=== PATIENT | female | born 1930 | race Caucasian/White ===

== ENCOUNTER 2017-08-04 15:49 | Emergency (ER) | payer MEDICARE ==
[~2017-08-04] VITALS: Ht 160 cm; Wt 53.1 kg
[~2017-08-04 15:49] MED LIST: ASPI325T8 PO; BRIM5DRO2 OU; LISI-334 PO; MECL-51 PO; MULT-18 PO; PRESSURE VISION
--- NOTE | 2017-08-04 17:05 | PHYS DOC ---
Past History Past Medical History: No Pertinent History, Glaucoma, Hypertension, Other Past Surgical History: No Surgical History Smoking: Non-smoker Alcohol Use: None Drug Use: None Adult General Chief Complaint Chief Complaint: neck pain HPI HPI 87-year-old female presenting to the emergency department today with neck pain. Triage complaint reports the patient states dizziness or lightheadedness. The patient does states that she feels mildly dizzy by this she means that when she stands up she feels mildly lightheaded. She however states that her primary complaint is the pain that started in her neck a few hours ago. She describes pain in the left trapezius muscle. She reports that it was cramped for about 10- 20 minutes and currently is improving. She reports having normal range of motion of the neck. She denies fevers chills cough chest pain shortness of breath. The pain in her neck was moderate nonradiating intermittent. She denies any recent trauma. Review of systems is negative for fevers chills petechiae abdominal pain. All other review of systems is negative unless otherwise noted in history of present illness. ED course: 87-year-old female presenting to the emergency department today with neck pain. Upon arrival the patient is afebrile with normal range of motion of the neck. Neurologic exam unremarkable. CT head and neck angiogram along with CT head head and neck without contrast. Patient was given oral Lortab for her neck pain. Patient was signed out to Dr. Gifford at 6 PM with plans to follow- up on imaging and reevaluation of the patient. Review of Systems Review of Systems SEE ABOVE. Allergies Allergies Allergies Coded Allergies Type Severity Reaction Last Updated Verified No Known Drug Allergies 09/11/13 No Physical Exam Physical Exam SEE ABOVE Constitutional: Well developed, well nourished, no acute distress, non-toxic appearance. [] HENT: Normocephalic, atraumatic, bilateral external ears normal, oropharynx moist, no oral exudates, nose normal. Pupils are approximately 3 mm to 4 mm in size equal round and reactive. Eyes: PERRLA, EOMI, conjunctiva normal, no discharge. [] Neck: Normal range of motion, mild tenderness along the left trapezius muscle. No stridor. Cardiovascular:Heart rate regular rhythm, no murmur [] Lungs & Thorax: Bilateral breath sounds clear to auscultation [] Abdomen: Bowel sounds normal, soft, no tenderness, no masses, no pulsatile masses. [] Skin: Warm, dry, no erythema, no rash. [] Back: No tenderness, no CVA tenderness. [] Extremities: No tenderness, no cyanosis, no clubbing, ROM intact, no edema. [] Neurologic: Mental status: Awake oriented and alert x3 Cranial nerves: Extraocular movements intact, eyebrows darrel bilaterally smile symmetric, uvula elevation, shoulder shrug intact, tongue protrusion normal DTRs: 2+ Sensation: equal and normal in all extremities Strength: 5/5 in upper and lower extremities bilaterally Psychologic: Affect normal, judgement normal, mood normal. [] Current Patient Data Vital Signs Vital Signs Date Time Temp Pulse Resp B/P (MAP) Pulse Ox O2 Delivery O2 Flow Rate FiO2 08/04/17 15:49 98.3 68 18 97 Room Air EKG EKG [] Radiology/Procedures Radiology/Procedures [] Course & Med Decision Making Course & Med Decision Making Pertinent Labs and Imaging studies reviewed. (See chart for details) See Dr. Reddy notes for details. Pt. is without symptoms and currently insistent on discharge. Pt. exhibit UCAR capacity- aware of risks of discharge. Pt. CT Head and Cervical= no acute changes. See formal report. Impression: 1. Dizzy 2. Neck Pain 3. Spinal Stenosis Pt. to follow up with primary. Return if any concerns. [] Dragon Disclaimer Dragon Disclaimer This electronic medical record was generated, in whole or in part, using a voice recognition dictation system. Departure Departure: Referrals: PCP,NO (PCP) LÓPEZ REDDY MD Aug 04, 2017 17:05 TARYN GIFFORD MD Aug 04, 2017 19:06
[2017-08-04] MEDS ORDERED: HYDROcodone/APAP 5/325MG 1 TAB TABLET PO ONE (17:15)
[2017-08-04] MEDS ORDERED: IV NORMAL SALINE 500ML 500 ML IV ONE (17:15)
[2017-08-04 17:20] LABS: HEMOGLOBIN ISTAT 12.6 gm/dL; POTASSIUM ISTAT 3.8 mmol/L (3.5-5.0)
[2017-08-04 17:26] LABS: BASO % 1 % (0-3); EOS # 0.4 x10^3/uL (0.0-0.7); EOS % 6 % (0-3); HEMATOCRIT 39.5 % (36.0-47.0); HEMOGLOBIN 13.3 g/dL (12.0-15.5); LYMPH # 1.6 x10^3/uL (1.0-4.8); LYMPH % 26 % (24-48); MEAN CORPUSCULAR HEMOGLOBIN 31 pg (25-35); MEAN CORPUSCULAR HGB CONC 34 g/dL (31-37); MEAN CORPUSCULAR VOLUME 90 fL (79-100); MONO # 0.5 x10^3/uL (0.0-1.1); MONO % 8 % (0-9); NEUT # 3.7 x10^3uL (1.8-7.7); NEUT % 60 % (31-73); PLATELET COUNT 158 x10^3/uL (140-400); RED BLOOD COUNT 4.37 x10^6/uL (3.50-5.40); RED CELL DISTRIBUTION WIDTH 15.3 % (11.5-14.5); WHITE BLOOD COUNT 6.2 x10^3/uL (4.0-11.0)
[2017-08-04] MEDS ORDERED: IOHEXOL 300 MG/ML 75 ML VIAL. IV ONE (17:30)
--- NOTE | 2017-08-04 18:44 | RAD ---
CT scan of the head without contrast 08/04/2017 Clinical History: Head trauma. Dizziness. Technique: Unenhanced, contiguous, 5 mm axial sections were obtained through the head. One or more of the following individualized dose reduction techniques were utilized for this study: 1. Automated exposure control. 2. Adjustment of the mA and/or kV according to patient size. 3. Use of iterative reconstruction technique. Findings: Comparison study is dated 10/01/2013. There is generalized parenchymal atrophy. Areas of decreased attenuation are seen within the periventricular and subcortical white matter of both cerebral hemispheres consistent with areas of small vessel ischemic disease. No acute parenchymal abnormality is seen. No extra-axial fluid collection is noted. No skull fracture is seen. Impression: No acute intracranial abnormality is seen. CT scan of the cervical spine without contrast 08/04/2017 Clinical history: Neck pain. Technique: Unenhanced, contiguous, 0.625 mm axial sections were obtained through the cervical spine. Axial, coronal and sagittal reconstructed images were obtained. One or more of the following individualized dose reduction techniques were utilized for this study: 1. Automated exposure control. 2. Adjustment of the mA and/or kV according to patient size. 3. Use of iterative reconstruction technique. Findings: Comparison study is dated 10/01/2013. Sagittal and coronal reconstructed images demonstrate minimal lateral curvature of the cervical spine convex to the right. There is slight reversal of normal cervical lordosis. Mild anterolisthesis of C5 in relation to C6 is noted. Degenerative changes consisting of vertebral endplate sclerosis and minimal to mild anterior and posterior vertebral body osteophyte formation are seen throughout the cervical disc spaces. Disc space narrowing is seen involving the C6-7 and C7-T1 discs. No fracture or subluxation of the cervical vertebrae is seen. Degenerative changes are seen involving the uncovertebral and facet joints throughout the cervical disc spaces. No area of significant central spinal canal stenosis is seen. Mild left neural foraminal stenosis is seen at C3-4. These findings have not significantly changed. Impression: Degenerative changes are seen involving the cervical spine as outlined above. No acute osseous abnormality is seen. Electronically signed by: Manjit Garcia MD (08/04/2017 6:41 PM) [facility]
--- NOTE | 2017-08-04 18:52 | RAD ---
CTA of the head and neck with contrast 08/04/2017 Clinical history: Sharp pain at base of neck with dizziness. Technique: After the intravenous administration 75 cc of Omnipaque 300, contiguous, 0.625 mm axial sections were obtained through the upper chest, neck and head. Multiplanar 3-D MIP and volume rendered 3-D reconstructed images were obtained. One or more of the following individualized dose reduction techniques were utilized for this study: 1. Automated exposure control. 2. Adjustment of the mA and/or kV according to patient size. 3. Use of iterative reconstruction technique. Findings: Comparison is made to patient's CT scan of the head performed earlier today. Mild atherosclerotic plaque formation is seen involving the thoracic aortic arch. The origins of the brachiocephalic, left common carotid and left subclavian arteries are patent. The origins of the right common carotid and both vertebral arteries are patent. The common carotid arteries are tortuous but patent. Mild atheromatous/atherosclerotic plaque formation is seen involving both carotid bifurcations. No hemodynamically significant stenosis or area of occlusion is seen. The internal carotid arteries within the neck are tortuous but patent. The vertebral arteries are codominant. Both vertebral arteries demonstrate normal antegrade flow. Intracranially the petrous, cavernous and supraclinoid portions of both internal carotid arteries are within normal limits. The basilar artery is patent. The anterior, middle and posterior cerebral arteries and their branches are within normal limits. No areas stenosis or occlusion is seen. No area of abnormal contrast enhancement is seen. The major dural venous sinuses are patent. No acute soft tissue abnormality is seen involving the neck. Degenerative changes are seen involving the uncovertebral and facet joints throughout the cervical disc spaces. IMPRESSION: 1. Mild atheromatous/atherosclerotic plaque formation is seen involving both carotid bifurcations. No hemodynamically significant stenosis or area of occlusion is seen. 2. No intracranial stenosis or area of occlusion is seen. Stenosis calculation for CTA are based on measurement of the distal internal carotid artery diameter in accordance with the NASCET methodology. Electronically signed by: Manjit Garcia MD (08/04/2017 6:49 PM) [facility]
[2017-08-04 19:20] VITALS: BP 148/89
[2017-08-04] MEDS ORDERED: ASPIRIN 325 MG TABLET PO ONE (19:30)
== END 2017-08-04 19:25 | disposition home or self-care (01) ==
LOC: ER 15:49
DX: M48.02 Spinal stenosis, cervical region (principal); R42 Dizziness and giddiness
CPT/HCPCS: 36415; 70450; 70496; 70498; 72125; 80047; 85025; 96360; 99285; J7040; Q9967

== ENCOUNTER 2017-08-20 14:06 | Inpatient (IN) | payer MEDICARE ==
[~2017-08-20] VITALS: Ht 152.4 cm; Wt 50.8 kg
[2017-08-20] MEDS ORDERED: IV NORMAL SALINE 100ML 100 ML ONE (15:36)
[2017-08-20] MEDS ORDERED: IOHEXOL 300 MG/ML 75 ML VIAL. IV ONE (15:45)
[2017-08-20 15:53] LABS: BASO % 1 % (0-3); EOS # 0.2 x10^3/uL (0.0-0.7); EOS % 5 % (0-3); HEMATOCRIT 41.3 % (36.0-47.0); HEMOGLOBIN 13.8 g/dL (12.0-15.5); LYMPH # 1.2 x10^3/uL (1.0-4.8); LYMPH % 24 % (24-48); MEAN CORPUSCULAR HEMOGLOBIN 30 pg (25-35); MEAN CORPUSCULAR HGB CONC 33 g/dL (31-37); MEAN CORPUSCULAR VOLUME 91 fL (79-100); MONO # 0.6 x10^3/uL (0.0-1.1); MONO % 13 % (0-9); NEUT # 2.9 x10^3uL (1.8-7.7); NEUT % 58 % (31-73); PLATELET COUNT 122 x10^3/uL (140-400); RED BLOOD COUNT 4.54 x10^6/uL (3.50-5.40); RED CELL DISTRIBUTION WIDTH 15.6 % (11.5-14.5)
[2017-08-20 15:56] LABS: CALCIUM 8.6 mg/dL (8.5-10.1); CREATININE 0.7 mg/dL (0.6-1.0); GFR 79.3; POTASSIUM 3.8 mmol/L (3.5-5.1)
--- NOTE | 2017-08-20 16:47 | RAD ---
One or more of the following individualized dose reduction techniques were utilized for this examination: 1. Automated exposure control 2. Adjustment of the mA and/or kV according to patient size 3. Use of iterative reconstruction technique CT orbits with contrast. History: Cellulitis left eye left cheek redness and swelling Study CT scan of the orbits was done using 75 mL Omnipaque 370 contrast. Sinuses are clear throughout. Visualized intracranial structures are unremarkable. Ventricles are normal in size. There is mild superficial soft tissue swelling on the left. There is no intraorbital mass. Parotid glands are unremarkable. There is no mass identified in the pharynx. Submandibular glands are normal although incompletely evaluated inferiorly. Sagittal and coronal reconstructed images were obtained. There is no abscess identified. A facial fracture is not identified. Ostiomeatal complex is clear. Impression: 1. No abscess noted. 2. Sinuses are clear. 3. Facial bones are unremarkable.
--- NOTE | 2017-08-20 17:54 | PHYS DOC ---
Past History Past Medical History: No Pertinent History, Glaucoma, Hypertension, Other Past Surgical History: No Surgical History Smoking: Non-smoker Alcohol Use: None Drug Use: None Adult General Chief Complaint Chief Complaint: EYE PROBLEMS HPI HPI Patient is a 87 year old female who presents with rash on her face that started 2-3 days ago around her right eye and has since spread to the left side of her face. Her rash is predominantly over the right eye and this caused some visual disturbance as well as pressure/pain in the eye. She does have baseline poor vision but she feels that her vision is worse. She denies fever sweats or chills. She denies headache. She denies any other associated symptoms. She denies any exacerbating or relieving factors. Review of Systems Review of Systems Constitutional: Denies fever or chills [] Eyes: Denies change in visual acuity, redness, or eye pain [] HENT: Denies nasal congestion or sore throat [] Respiratory: Denies cough or shortness of breath [] Cardiovascular: No additional information not addressed in HPI [] GI: Denies abdominal pain, nausea, vomiting, bloody stools or diarrhea [] : Denies dysuria or hematuria [] Musculoskeletal: Denies back pain or joint pain [] Integument: Negative except history of present illness Neurologic: Denies headache, focal weakness or sensory changes [] Endocrine: Denies polyuria or polydipsia [] All other systems were reviewed and found to be within normal limits, except as documented in this note. Family History Family History No pertinent family medical history reported Current Medications Current Medications Current medications reviewed Current Medications Medications (Trade) Dose Ordered Sig/John Start Time Stop Time Status Last Admin Dose Admin Ceftriaxone Sodium 2 gm/ Sodium Chloride 100 ml @ 200 mls/hr 1X ONCE 08/20/17 16:00 08/20/17 16:30 DC 08/20/17 15:41 200 MLS/HR Ceftriaxone Sodium (Rocephin) 2 gm STK-MED ONCE 08/20/17 15:36 08/20/17 15:37 DC Iohexol (Omnipaque 300 Mg/ml) 75 ml 1X ONCE 08/20/17 15:45 08/20/17 15:46 DC Sodium Chloride 100 ml @ As Directed STK-MED ONCE 08/20/17 15:36 08/20/17 15:37 DC Allergies Allergies Allergies Coded Allergies Type Severity Reaction Last Updated Verified No Known Drug Allergies 09/11/13 No Physical Exam Physical Exam Constitutional: Well developed, well nourished, no acute distress, non-toxic appearance. [] HENT: Normocephalic, atraumatic, moderate erythema completely surrounding the right eye and extending to the inferior margin of the left eye. Well defined margins. Patient describes small bulla that is since opened Eyes: PERRLA, EOMI, film noted over the right eye Neck: Normal range of motion, no tenderness, supple, no stridor. [] Cardiovascular:Heart rate regular rhythm, no murmur [] Lungs & Thorax: Bilateral breath sounds clear to auscultation [] Abdomen: Bowel sounds normal, soft, no tenderness, no masses, no pulsatile masses. [] Skin: Warm, dry, no erythema, Back: No tenderness, no CVA tenderness. [] Extremities: No tenderness, no cyanosis, no clubbing, ROM intact, no edema. [] Neurologic: Alert and oriented X 3, normal motor function, normal sensory function, no focal deficits noted. [] Psychologic: Affect normal, judgement normal, mood normal. [] Current Patient Data Vital Signs Vital Signs Date Time Temp Pulse Resp B/P (MAP) Pulse Ox O2 Delivery O2 Flow Rate FiO2 08/20/17 14:06 97.8 87 18 99 Room Air Lab Results Laboratory Tests Test 08/20/17 15:27 White Blood Count 5.0 x10^3/uL (4.0-11.0) Red Blood Count 4.54 x10^6/uL (3.50-5.40) Hemoglobin 13.8 g/dL (12.0-15.5) Hematocrit 41.3 % (36.0-47.0) Mean Corpuscular Volume 91 fL (79-100) Mean Corpuscular Hemoglobin 30 pg (25-35) Mean Corpuscular Hemoglobin Concent 33 g/dL (31-37) Red Cell Distribution Width 15.6 % (11.5-14.5) H Platelet Count 122 x10^3/uL (140-400) L Neutrophils (%) (Auto) 58 % (31-73) Lymphocytes (%) (Auto) 24 % (24-48) Monocytes (%) (Auto) 13 % (0-9) H Eosinophils (%) (Auto) 5 % (0-3) H Basophils (%) (Auto) 1 % (0-3) Neutrophils # (Auto) 2.9 x10^3uL (1.8-7.7) Lymphocytes # (Auto) 1.2 x10^3/uL (1.0-4.8) Monocytes # (Auto) 0.6 x10^3/uL (0.0-1.1) Eosinophils # (Auto) 0.2 x10^3/uL (0.0-0.7) Basophils # (Auto) 0.0 x10^3/uL (0.0-0.2) Sodium Level 144 mmol/L (136-145) Potassium Level 3.8 mmol/L (3.5-5.1) Chloride Level 107 mmol/L (98-107) Carbon Dioxide Level 29 mmol/L (21-32) Anion Gap 8 (6-14) Blood Urea Nitrogen 18 mg/dL (7-20) Creatinine 0.7 mg/dL (0.6-1.0) Estimated GFR (Cockcroft-Gault) 79.3 Glucose Level 105 mg/dL (70-99) H Calcium Level 8.6 mg/dL (8.5-10.1) EKG EKG [] Radiology/Procedures Radiology/Procedures CT orbit with contrast Impressions: Please refer to radiology report for further details. No abscess noted Course & Med Decision Making Course & Med Decision Making Pertinent Labs and Imaging studies reviewed. (See chart for details) She was started on Rocephin 2 g IV. Her condition remained stable in the emergency room. Dragon Disclaimer Dragon Disclaimer This electronic medical record was generated, in whole or in part, using a voice recognition dictation system. Departure Departure: Impression: Primary Impression: Facial cellulitis Disposition: ADMITTED INPATIENT Condition: STABLE Referrals: PCP,NO (PCP) KYLAH LAUREN MD Aug 20, 2017 17:54
[2017-08-20 18:03] LABS: ALBUMIN 3.2 g/dL (3.4-5.0); DIRECT BILIRUBIN 0.1 mg/dL (0.0-0.2); TOTAL BILIRUBIN 0.5 mg/dL (0.2-1.0); TOTAL PROTEIN 6.9 g/dL (6.4-8.2)
[2017-08-20 18:46] VITALS: BP 188/93
[2017-08-20] MEDS ORDERED: ASPIRIN ENTERIC COATED 81 MG TABLET.DR. PO PRN (19:15)
[2017-08-20] MEDS: BRIMONIDINE 0.2% OPHTH SOLUTION 5ML BOTTLE. OU SCH (20:36)
[2017-08-20] MEDS: TIMOLOL 0.5% OPHTH SOLUTION 5ML BOTTLE. OU SCH (20:36)
[2017-08-20 23:00] VITALS: BP 145/73
[2017-08-21 05:16] VITALS: BP 170/84
[2017-08-21] MEDS: BRIMONIDINE 0.2% OPHTH SOLUTION 5ML BOTTLE. OU SCH ×2 (08:08→19:55)
[2017-08-21] MEDS: MULTIVITAMIN with MINERAL TABLET. PO SCH (08:08)
[2017-08-21] MEDS: TIMOLOL 0.5% OPHTH SOLUTION 5ML BOTTLE. OU SCH ×2 (08:08→19:55)
[2017-08-21] MEDS ORDERED: methylPREDNISolone SOD SUCC PF 40 MG/ML VIAL. IV ONE (10:00)
[2017-08-21 10:38] VITALS: BP 133/87
[2017-08-21] MEDS: ACYCLOVIR SODIUM 500 MG in IV DEXTROSE 5% 100 ML IV SCH ×2 (10:49→22:34)
--- NOTE | 2017-08-21 11:16 | HP ---
ADMIT DATE: 08/21/2017 REASON FOR ADMISSION: Left facial cellulitis versus herpes zoster. HISTORY OF PRESENT ILLNESS: This is an 87-year-old female, there may be a connection to a visit she made to the Emergency Room on the 08/04/2017 she had developed some acute neck pain on the left side, had really not been doing anything. It radiated into her ear. She thought that it affected her vision and then she broke out what she thought was looked like poison judie on her face. She was seen in the Emergency Room and diagnosed with neck pain. She noticed that her face was also blood red and pain and with eyes watering, she came to the Emergency Room. PAST MEDICAL HISTORY: She has had a couple bouts of polymyalgia rheumatica. She has osteoarthritis, macular degeneration and glaucoma. 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 MEDICATIONS: One baby aspirin a day. ALLERGIES: None. SOCIAL HISTORY: The patient lives alone [place] She still drives. She does a lot of gardening. Her is and her only child also . Remote smoking history. No alcohol. REVIEW OF SYSTEMS: Negative for chest pain, negative for shortness of breath. Positive for a slight decrease in appetite. Negative bowel or bladder issues. Complaining also of a dry throat and some chills. PHYSICAL EXAMINATION: VITAL SIGNS: Blood pressure is 170/84, pulse 73, respirations 18, pulse ox 97% on room air. HEENT AND NECK: Left TM, there is no erythema, but the cone of light is missing. There is some right debris inside the ear. The external ear is slightly erythematous. Her nose was patent. Throat was clear. There were no lesions in her throat. Tongue was slightly dry. Her neck was supple without adenopathy. Face: The patient has crusted lesions, which appear like herpes zoster along the trigeminal dermatome, also affects eye and the forehead, does not cross the midline. She has some soft tissue swelling on the left. There is a little bit of redness on the right cheek. Now, her pupils were equal, round and reactive to light. Extraocular muscles were intact. The left eye is watery, could not do an adequate ophthalmic exam. She does have, I believe, one herpetic type lesion on her scalp and is tender. LUNGS: Clear to auscultation. CARDIOVASCULAR: Regular rhythm and rate with 1/6 systolic murmur. ABDOMEN: Soft, nontender. EXTREMITIES: Without any edema. SKIN: Overall is aged in appearance. NEUROLOGIC: She is alert and oriented. LABORATORY DATA: CBC: Low normal white count of 5.0 with 13 monocytes, 5 eosinophils and platelet count 122,000. Chemistry: Slightly low albumin of 3.2, otherwise normal. Slightly elevated alkaline phosphatase. Sedimentation rate and C-reactive protein pending. ASSESSMENT: Herpes zoster of the left side of the face, also concern for the eye, history of macular degeneration, history of glaucoma, mild thrombocytopenia, mild eosinophilia. PLAN: We will start her on acyclovir. Consult Dr. Fierro. Low-dose steroid today, ____ has been 18 day since her initial symptom, but will treat her and await Dr. Fierro recommendations. DURAN BUENO DO DR: ADRIANO/arielle JOB#: [id number] / [id number]
--- NOTE | 2017-08-21 14:58 | CONS ---
DATE OF CONSULTATION: 08/21/2017 PHYSICIAN REQUESTING CONSULTATION: Ilene Henry DO TIME: 12:15 p.m. CHIEF COMPLAINT: Rash on the left side of face. HISTORY OF PRESENT ILLNESS: This 87-year-old female states that approximately 6 days ago, she began having pain, irritation, burning on the left side of her face, and around her left eye. She then broke out with a rash on the left side of the face and also had some complaints of pressure in her head, especially on standing. She gets some pain as well in the left ear. DESCRIPTION OF PROCEDURE: The patient presented to the emergency room and was admitted to the hospital with probable shingles, possible cellulitis. She was then started on IV acyclovir. 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 The patient has a history of hypertension as well. MEDICATIONS: Include Combigan twice a day in both eyes for glaucoma. SOCIAL HISTORY: The patient denies alcohol. She was a former smoker. FAMILY HISTORY: Unknown. ALLERGIES: Possible reaction to a seizure medication, but the patient does not know what it was. PHYSICAL EXAMINATION: Physical exam is done at bedside. She is a well-developed, well-nourished female in no acute distress. Externally, she has a vesicular rash with generalized erythema on the left scalp, left periorbital region, and the left cheek. The nose is not involved. There is some evidence of scabbing and scaling. The rash is tender to touch and is warm to the touch. Visual acuity at near with correction is 20/70 in the right and 20/200 in the left. Intraocular pressures are 13 in the right and 14 in the left. The patient is well known to me and review of her medical record reveals her baseline vision in the right eye to be 20/150 and 20/80 in the left due to macular degeneration. Slit lamp examination of the left eye reveals dermatochalasis. There is a vesicular lesion involving the lid margin of the left upper lid. She has arcus and corneal guttata. There is a significant amount of mucus in the eye, but there is no evidence of conjunctivitis. Anterior chambers deep and quiet. Iris is normal. There is an intraocular lens present. IMPRESSION: 1. Herpes zoster dermatitis, left side of the face without ocular involvement at the present time. 2. Primary open angle glaucoma with adequate intraocular pressures. 3. Fuchs dystrophy (corneal endothelial dystrophy). 4. Macular degeneration, both eyes. I agree with present treatment protocol. I did explain to the patient that sometimes we can get some ocular involvement within a week or two after the skin lesions erupt. I recommend seeing her again in a week after her discharge or earlier if she has increased pain, redness, or change in vision. Thank you very much for consulting me on this patient. If I can of any other assistance, please do not hesitate to contact me. RENAN CRANDALL DO DR: MATTEO/arielle JOB#: [id number] / [id number]
[2017-08-21] MEDS: ACYCLOVIR 5% TOPICAL OINT 5GM TUBE. TP SCH (15:06)
[2017-08-21 15:37] VITALS: BP 122/64
[2017-08-21 15:39] VITALS: BP 153/67
[2017-08-21 19:26] VITALS: BP 153/87
[2017-08-21 23:39] VITALS: BP 158/77
[2017-08-22 06:26] VITALS: BP 142/84
[2017-08-22 06:53] LABS: HEMATOCRIT 41.2 % (36.0-47.0); HEMOGLOBIN 14.3 g/dL (12.0-15.5); RED BLOOD COUNT 4.62 x10^6/uL (3.50-5.40); WHITE BLOOD COUNT 6.5 x10^3/uL (4.0-11.0)
[2017-08-22 07:15] LABS: ALBUMIN 3.1 g/dL (3.4-5.0); ALBUMIN/GLOBULIN RATIO 0.8 (1.0-1.7); CALCIUM 8.8 mg/dL (8.5-10.1); CREATININE 0.8 mg/dL (0.6-1.0); MAGNESIUM 2.1 mg/dL (1.8-2.4); POTASSIUM 3.9 mmol/L (3.5-5.1); TOTAL BILIRUBIN 0.5 mg/dL (0.2-1.0); TOTAL PROTEIN 7.1 g/dL (6.4-8.2)
[2017-08-22] MEDS: ACYCLOVIR 5% TOPICAL OINT 5GM TUBE. TP SCH ×2 (08:37→14:28)
[2017-08-22] MEDS: MULTIVITAMIN with MINERAL TABLET. PO SCH (08:37)
[2017-08-22] MEDS: BRIMONIDINE 0.2% OPHTH SOLUTION 5ML BOTTLE. OU SCH ×2 (08:37→20:47)
[2017-08-22] MEDS: TIMOLOL 0.5% OPHTH SOLUTION 5ML BOTTLE. OU SCH ×2 (08:37→20:47)
[2017-08-22 10:06] VITALS: BP 167/77
[2017-08-22] MEDS: ACYCLOVIR SODIUM 500 MG in IV DEXTROSE 5% 100 ML IV SCH ×2 (10:27→20:47)
[2017-08-22] MEDS: LISINOPRIL 5 MG TABLET. PO SCH (11:49)
[2017-08-22 15:25] VITALS: BP 159/78
[2017-08-22 18:57] VITALS: BP 122/71
[2017-08-22 22:33] VITALS: BP 103/65
--- NOTE | 2017-08-23 03:17 | PN ---
DATE: 08/22/2017 CURRENT PROBLEMS: 1. Facial herpes zoster without eye involvement. 2. Macular degeneration. 3. Glaucoma. 4. Mild thrombocytopenia, which has resolved. SUBJECTIVE: The patient was seen in her room. She is doing much better today. Face feels better. The IV acyclovir is really helping her. She has been getting information on herpes zoster. She was quite confused and insist that she has never had the chickenpox. She was seen by Dr. Fierro who did not find any eye involvement. Her distribution is along C2 dermatome. OBJECTIVE: VITAL SIGNS: Blood pressure 167/77, pulse 75, respirations 18, temperature is 97.5, pulse ox is 96% on room air. She has trending some elevated blood pressures. GENERAL: Face crusting and erythema has gotten better. All lesions have crusted over now, distributed on the left side of the face, primarily on the forehead and the area around the eye. Scalp was a little bit tender as well. NECK: Supple. LUNGS: Clear. CARDIOVASCULAR: Regular rhythm and rate. ABDOMEN: Soft, nontender. EXTREMITIES: Without edema. LABORATORY DATA: Unremarkable. PLAN: One more day of acyclovir. Plan for discharge tomorrow and we will possibly start her on low dose blood pressure medication. DURAN BUENO DO DR: ADRIANO/arielle JOB#: [id number] / [id number]
[2017-08-23 05:58] VITALS: BP 120/74
[2017-08-23] MEDS: ACYCLOVIR 5% TOPICAL OINT 5GM TUBE. TP SCH (08:32)
[2017-08-23] MEDS: TIMOLOL 0.5% OPHTH SOLUTION 5ML BOTTLE. OU SCH (08:33)
[2017-08-23] MEDS: BRIMONIDINE 0.2% OPHTH SOLUTION 5ML BOTTLE. OU SCH (08:33)
[2017-08-23] MEDS: MULTIVITAMIN with MINERAL TABLET. PO SCH (08:33)
[2017-08-23] MEDS: LISINOPRIL 5 MG TABLET. PO SCH (08:34)
[2017-08-23] MEDS: ACYCLOVIR SODIUM 500 MG in IV DEXTROSE 5% 100 ML IV SCH (08:35)
[2017-08-23] MEDS ORDERED: ACYC800T PO (10:15)
[2017-08-23] MEDS ORDERED: LISI-338 PO (10:15)
[2017-08-23 10:17] VITALS: BP 98/63
--- NOTE | 2017-08-23 21:51 | DS ---
DATE OF DISCHARGE: 08/23/2017 DISCHARGE DIAGNOSES: 1. Herpes zoster along the C2 dermatome without eye involvement. 2. Macular degeneration. 3. Glaucoma. 4. Hypertension, treated in the hospital. 5. Mild thrombocytopenia, which is resolved. HOSPITAL COURSE: This is an 87-year-old female, who presented with facial pain, eye watering, and classic presentation of herpes zoster. This possibly had been ongoing for at least a week. She was treated with IV acyclovir, which greatly helped her facial pain. She was seen by Dr. Fierro, who stated there was no ocular involvement. Her blood pressure was elevated during her hospitalization and she was started on a low dose of lisinopril. PHYSICAL EXAMINATION: VITAL SIGNS: On the day of discharge, blood pressure 98/63, pulse 88, respirations 16, pulse ox is 93% on room air. Lesions on her face are now crusted over. There is diminished erythema. LUNGS: Clear. CARDIOVASCULAR: Regular rhythm and rate. DISPOSITION: To home. She must follow up with Dr. Fierro. She must establish care with a primary care doctor to monitor her blood pressure and will definitely call her tomorrow. DURAN BUENO DO DR: ADRIANO/arielle JOB#: [id number] / [id number]
== END 2017-08-23 11:05 | disposition home or self-care (01) | DRG 866 ==
LOC: ER 14:06 → 1 SOUTH 18:42
PROVIDERS: ADMIT Internal Medicine; ATTEND Internal Medicine
DX: B02.8 Zoster with other complications (principal); D69.6 Thrombocytopenia, unspecified; D72.1 Eosinophilia; H35.30 Unspecified macular degeneration; H40.1120 Primary open-angle glaucoma, left eye, stage unspecified; L30.9 Dermatitis, unspecified; M19.90 Unspecified osteoarthritis, unspecified site; M35.3 Polymyalgia rheumatica; H18.51 Endothelial corneal dystrophy; M54.2 Cervicalgia; I10 Essential (primary) hypertension; Z87.891 Personal history of nicotine dependence; Z90.49 Acquired absence of other specified parts of digestive tract
CPT/HCPCS: 36415; 70481; 80048; 80053; 80076; 83735; 85025; 85027; 85651; 86140; 96365; 96375; G0379; J0133; J0696; J2920; 99285-25